=== PATIENT | female | born 1970 | race Hispanic/Latino ===

== ENCOUNTER 2018-01-24 21:51 | Emergency (ER) | payer BC ==
--- NOTE | 2018-01-24 23:55 | RAD ---
THREE VIEWS LEFT FOOT 01/24/18 HISTORY: Patient dropped picture frame on left middle toe. Bruising to left middle toe. Injury to left foot. FINDINGS: Lisfranc joint is normally aligned. There is no evidence of a fracture, dislocation, or other osseous abnormality involving the left foot. IMPRESSION: No acute osseous abnormality. POS: [facility]
== END 2018-01-24 23:31 | disposition home or self-care (01) ==
LOC: ERS 21:51
DX: S90.122A Contusion of left lesser toe(s) without damage to nail, initial encounter (principal); E78.5 Hyperlipidemia, unspecified; I10 Essential (primary) hypertension; Z79.899 Other long term (current) drug therapy; W20.8XXA Other cause of strike by thrown, projected or falling object, initial encounter

== ENCOUNTER 2018-07-27 13:48 | Observation (INO) | payer BC ==
[2018-07-27 15:01] LABS: #Eosinphils 0.3 thou/uL (0.0-0.7); #Monocytes 0.6 thou/uL (0.11-0.59); #Neutrophils 9.6 thou/uL (1.40-6.50); %Basophils 0.4 % (0.0-1.0); %Eosinophils 2.3 % (0.0-10.0); %Lymphocytes 16.1 % (21.0-51.0); %Monocytes 4.5 % (0.0-10.0); %Neutrophils 76.7 % (42.0-75.0); Hemoglobin 14.7 g/dL (12.0-16.0); Mean Corpuscular HGB CONC 32.9 g/dL (32.0-36.0); Mean Corpuscular Hemoglobin 28.5 pg (27.0-31.0); Mean Corpuscular Volume 86.6 fL (78.0-98.0); Mean Platelet Volume 7.6 fL (7.4-10.4); Platelet Count 337 thou/uL (130-400); RBC Distribution Width 13.1 % (11.5-14.5); Red Blood Cell (RBC) Count 5.16 mill/uL (4.20-5.40); White Blood Cell (WBC) Count 12.6 thou/uL (4.8-10.8)
[2018-07-27 15:27] LABS: ALT (SGPT) 12 U/L (8-55); AST (SGOT) 20 U/L (5-34); Albumin 3.8 g/dL (3.5-5.0); Alkaline Phosphatase 110 U/L (40-150); Anion Gap 11 mmol/L (10-20); BUN (Urea Nitrogen) 10 mg/dL (7.0-18.7); Bilirubin, Total 0.6 mg/dL (0.2-1.2); Calc. Creatinine Clearance 0 mL/min (70-130); Carbon Dioxide 27 mmol/L (22-29); Chloride 102 mmol/L (98-107); Estimated GFR-MDRD 86; Globulin 3.5 g/dL (2.4-3.5); Glucose 106 mg/dL (70-105); Potassium 3.4 mmol/L (3.5-5.1); Protein, Total 7.3 g/dL (6.0-8.3); Sodium 137 mmol/L (136-145)
[2018-07-27 15:29] LABS: CKMB 0.3 ng/mL (0-6.6); Troponin I Less than 0.010 ng/mL (< 0.028)
[2018-07-27 16:02] LABS: CK (CPK) 30 U/L (29-168); Lipase 23 U/L (8-78)
[2018-07-27] MEDS ORDERED: hydrALAZINE 20 MG/ML VIAL SLOW IVP PRN (16:48)
[2018-07-27] MEDS ORDERED: HumaLOG 300 UNITS/3 ML VIAL SC PRN ×2 (16:48)
[2018-07-27] MEDS ORDERED: Bisacodyl 5 MG TAB PO PRN ×2 (16:48)
[2018-07-27] MEDS ORDERED: Dextrose 5% in Water 1,000 ML IV PRN (16:48)
[2018-07-27] MEDS ORDERED: Dextrose 50% Abboject 50 ML SYRINGE SLOW IVP PRN (16:48)
[2018-07-27] MEDS ORDERED: Acetaminophen 325 MG TAB PO PRN (16:48)
[2018-07-27] MEDS ORDERED: Diabetic Tussin 200 MG/10 ML UDCUP PO PRN (16:48)
[2018-07-27] MEDS ORDERED: Ondansetron PF 4 MG/2 ML Vial IVP PRN ×2 (16:48)
[2018-07-27] MEDS ORDERED: Acetaminophen 500 MG TAB PO PRN (16:48)
[2018-07-27] MEDS ORDERED: Calcium Carbonate 500 MG ChewTAB PO PRN (16:48)
[2018-07-27] MEDS ORDERED: Nitroglycerin 0.4 MG TAB (25 Tab Bottle) SL PRN (16:48)
[2018-07-27] MEDS ORDERED: Senokot S 8.6-50 MG TAB PO PRN ×2 (16:48)
[2018-07-27] MEDS ORDERED: cloNIDine 0.1 MG TAB PO PRN (16:48)
[2018-07-27] MEDS ORDERED: Benzonatate 100 MG CAP PO PRN (16:48)
[2018-07-27 19:42] LABS: Troponin I Less than 0.010 ng/mL (< 0.028)
[2018-07-27 21:29] LABS: Troponin I Less than 0.010 ng/mL (< 0.028)
[2018-07-27] MEDS ORDERED: Potassium Chloride 20 MEQ TAB PO SCH (21:30)
--- NOTE | 2018-07-27 22:26 | HP ---
DATE OF ADMISSION: 07/27/2015 PRIMARY CARE PHYSICIAN: Reina Ruth M.D. CHIEF COMPLAINT: Chest pain and paresthesias. HISTORY OF PRESENT ILLNESS: Ms. Hernandez is a 47-year-old female with past medical history of hypert ension who presented to the emergency room with the above-mentioned complaint. History is mainly obt ained by the patient herself and electronic medical records have been reviewed. Case has been discus sed with admitting ER physician. Ms. Hernandez reports that she has been in her usual health, but while at work today, she felt some ch est pressure, 8/10 in intensity. This was associated with some shortness of breath, nausea, and palp itations. She also had feelings of "vibrations" around her mouth and her whole body. She denies any similar symptoms in the past. She denies any recent illnesses. She does have a strong family histo ry of coronary artery disease in multiple family members. She reports that her blood pressure is usu ally under good control and she is compliant with her medications. Upon presentation to the ER, her blood pressure was 138/81 with a pulse of 81. Her initial workup in cluded a 12-lead EKG, which did not have any evidence to suggest ACS. Chest x-ray was done which was unremarkable as well. Her troponin was checked and CK-MB and troponin were both normal. Rest of he r workup was unremarkable except for mild elevation of WBCs at 12.6 with 76% neutrophils and potassiu m of 3.4. She was given aspirin in the emergency room and is now being admitted to further work up a nd rule out acute coronary syndrome given her strong family history and other risk factors including obesity and hypertension. She also has a strong family history of diabetes mellitus in [facility]. Otherwise, she denies any orthopnea, PND, shortness of breath on exertion, recent weight loss or weig ht gain. Her chest pain at this time is almost relieved. She cannot recall any exacerbating or reli eving factors either. The patient reports that she had a hysterectomy done 2 years ago and feels that some of her symptoms like sweating that happened today, related to her menopause. PAST MEDICAL HISTORY: Hypertension. PAST SURGICAL HISTORY: 1. Cholecystectomy. 2. Hernia repair. 3. Hysterectomy. 4. Tubal ligation. PAST PSYCHIATRIC HISTORY: No anxiety, no depression. FAMILY HISTORY: Multiple family members with coronary artery disease and diabetes on both parents' s rita. Her dad had quadruple bypass in his 60s. She denies any drugs. SOCIAL HISTORY: She denies any drug, tobacco or alcohol abuse. She works in the [employer]. She is and lives with her . ALLERGIES: No known medication allergies. CURRENT MEDICATIONS: Lisinopril 20 mg daily, amlodipine 10 mg daily, bupropion 150 mg in the morning and, triamterene/hydrochlorothiazide 75/50 one tablet daily. REVIEW OF SYSTEMS: A 12-point review of systems is done and is negative except for those mentioned i n the history and physical LABORATORY DATA: Her CBC shows WBCs at 12.6 with 76% neutrophils, otherwise unremarkable. Serum cam jake shows potassium of 3.4, blood sugar 106, otherwise unremarkable. Lipase is normal. CPK rk l at 30, CK-MB 0.3, troponin less than 0.010 x2. A 12-lead EKG by my review shows no evidence to sug gest acute ST or T-wave changes, normal sinus rhythm is seen at 83 beats per minute. Poor R-wave pro gression is seen. Chest x-ray by my review has no evidence to suggest pleural effusion, edema or inf iltrate. PHYSICAL EXAMINATION: VITAL SIGNS: Upon presentation, blood pressure 138/81, pulse of 81, respirations 16, saturating 95% on room air, temperature 98.4. GENERAL: No acute distress, awake, alert, oriented x3. HEENT: Mucous membrane is moist and pink. No oropharyngeal exudate or erythema. Head is normocepha lic, atraumatic. Pupils equal, reactive to light and accommodation. Extraocular movement intact. NECK: Supple without any lymphadenopathy, JVD or bruit. CHEST: Clear to auscultation without any wheezing, rales or rhonchi. HEART: Rate and rhythm is regular without any murmur, rubs or gallops. ABDOMEN: Soft, nontender, nondistended with positive bowel sounds. EXTREMITIES: Free of any cyanosis, clubbing, or edema. NEUROLOGIC: Nonfocal. SKIN: Free of any rashes or bruises. Feels warm and dry to touch. PSYCHIATRIC: Normal affect. IMPRESSION AND PLAN: 1. Chest pain. The patient has had no cardiac workup done in the past and no risk stratification. Given her strong family history of coronary artery disease and personal history of hypertension and o besity, we will admit her under observation status to rule out acute coronary syndrome. Serial cardi ac enzymes will be trended. She is negative so far. We will continue aspirin and obtain a nuclear m edicine stress test in the morning. At this time, she is otherwise asymptomatic. We will also order a lipid panel in the morning. Sublingual nitroglycerin as needed will be started. We will restart her KARINA inhibitors. Continue her amlodipine, triamterene-hydrochlorothiazide for blood pressure cont rol as well. She will be on monitoring and evaluation advisor overnight. 2. Hypertension. Resume home medications as above. Currently controlled. 3. Obesity, BMI yet to be calculated. 4. Family history of coronary artery disease. 5. Family history of diabetes mellitus. The patient's blood sugar is under good control. We will c heck her hemoglobin A1c. 6. Deep venous thrombosis and gastrointestinal prophylaxis. DISPOSITION: Ms. Hernandez is currently being admitted to rule out ACS given multiple risk factors. Further management will depend upon her clinical course.
[2018-07-27] MEDS: Famotidine 20 MG TAB PO SCH (22:39)
[2018-07-28 03:32] LABS: Bilirubin Negative (Negative); Blood, Urine Negative (Negative); Clarity CLEAR (Clear); Glucose, Urine (Dipstick) Negative (Negative); Leukocyte Negative (Negative); Nitrite Negative (Negative); Protein, Urine (Dipstick) Negative (Neg-Trace); Specific Gravity, Urine 1.017 (1.002-1.036); Urobilinogen 0.2 mg/dL (0.2-1.0)
[2018-07-28 05:45] LABS: #Basophils 0.1 thou/uL (0.0-0.2); #Eosinphils 0.3 thou/uL (0.0-0.7); #Lymphocytes 2.5 thou/uL (1.20-3.40); #Monocytes 0.6 thou/uL (0.11-0.59); #Neutrophils 7.5 thou/uL (1.40-6.50); %Basophils 0.9 % (0.0-1.0); %Eosinophils 2.8 % (0.0-10.0); %Lymphocytes 22.5 % (21.0-51.0); %Monocytes 5.3 % (0.0-10.0); %Neutrophils 68.5 % (42.0-75.0); Mean Corpuscular HGB CONC 31.8 g/dL (32.0-36.0); Mean Corpuscular Hemoglobin 28.2 pg (27.0-31.0); Mean Corpuscular Volume 88.7 fL (78.0-98.0); Mean Platelet Volume 8.1 fL (7.4-10.4); Platelet Count 304 thou/uL (130-400); RBC Distribution Width 13.4 % (11.5-14.5); Red Blood Cell (RBC) Count 4.97 mill/uL (4.20-5.40)
[2018-07-28 06:07] LABS: Hemoglobin A1c 5.3 % (4.0-6.0)
[2018-07-28 06:15] LABS: Anion Gap 11 mmol/L (10-20); BUN (Urea Nitrogen) 12 mg/dL (7.0-18.7); Calc. Creatinine Clearance 154 mL/min (70-130); Calcium 8.6 mg/dL (7.8-10.44); Carbon Dioxide 26 mmol/L (22-29); Cardiac Risk 3.8 (Less than 4.5); Chloride 105 mmol/L (98-107); Cholesterol 180 mg/dl (< 200 Desired); Estimated GFR-MDRD Greater than 90; Glucose 94 mg/dL (70-105); HDL Cholesterol 47 mg/dL (>60 Neg Risk); LDL Cholesterol, Calculated 108 mg/dL; Potassium 3.7 mmol/L (3.5-5.1); Sodium 138 mmol/L (136-145); Triglycerides 127 mg/dL (Less than 150)
[2018-07-28] MEDS ORDERED: Triamterene/Hydrochlorothiazid 75 mg/50 mg Tablet PO SCH (09:00)
[2018-07-28] MEDS ORDERED: Aspirin 325 mg Enteric Coated Tablet PO SCH (09:00)
[2018-07-28] MEDS ORDERED: Lisinopril 20 MG TAB PO SCH (09:00)
[2018-07-28] MEDS ORDERED: Enoxaparin Sodium 40 MG/0.4 ML SYRINGE SC SCH (09:00)
[2018-07-28] MEDS ORDERED: Amlodipine 10 MG TAB PO SCH (09:00)
[2018-07-28] MEDS ORDERED: Bupropion 150 MG XL TAB PO SCH (09:00)
[2018-07-28] MEDS ORDERED: Regadenoson 0.4 MG/5 ML SYRINGE ONE (10:38)
[2018-07-28] MEDS: Famotidine 20 MG TAB PO SCH (11:20)
--- NOTE | 2018-07-28 14:48 | NM ---
STRESS ONLY MYOCARDIAL PERFUSION STUDY: Technique: Patient was given 31 mCi Technetium 99M Sestamibi IV. A stress only exam was performed. Patient was s tressed according to [facility] protocol. Indications: Chest pain. FINDINGS: Normal activity is seen throughout the left ventricle on the stress only study. Wall motion appears n ormal. IMPRESSION: Negative stress only myocardial perfusion exam. POS: [facility]
[2018-07-28] MEDS ORDERED: Bupivacaine 0.75% W/DEXTROSE 8.25% 2 ML AMP ONE (15:13)
--- NOTE | 2018-07-28 15:44 | PDOC.EVN ---
Event Note - Event Note Event Note: I have interviewed, examined and discussed patient with Irene CASTANEDA regarding evaluation for chest pain. Reviewed all labs, x-rays and stress tests with recommendations for outpt follow up, diet, exercise and BP control. Please see dictated H&P for details. Discharge home today.
--- NOTE | 2018-07-28 15:52 | RAD ---
CHEST 1 VIEW: Date: 07/27/18 HISTORY: Chest pain. COMPARISON: None. FINDINGS: Lungs are clear. No pneumothorax or effusion. Cardiac silhouette and mediastinal contours are within normal limits. IMPRESSION: No acute intrathoracic abnormality. POS: [facility]
[2018-07-28 16:19] VITALS: BP 133/73; TEMP 98.1
--- NOTE | 2018-07-29 01:17 | DIS ---
DATE OF ADMISSION: 07/27/2018 DATE OF DISCHARGE: 07/28/2018 PRIMARY CARE PHYSICIAN: Reina Ruth MD CODE STATUS: FULL. CONSULTANTS: None. PROCEDURES: She had a nuclear stress test, which was negative. A chest x-ray done in the ER, which showed no acute findings. DISCHARGE DIAGNOSES: 1. Chest pain, noncardiac. 2. Hypertension, which is controlled with home medications. REVIEW OF SYSTEMS: On exam this morning by me, she denied any chest pain, shortness of breath, focal weakness, nausea, vomiting, diarrhea, or any general complaints. Reports that the chest pain resolved yesterday while in the ER and has not returned. PHYSICAL EXAMINATION: VITAL SIGNS: Temperature 98.1, pulse 63, respirations are 20, O2 sats 93 on room air, blood pressure 133/78. GENERAL: She is in no acute distress. She is awake, alert, oriented x3. HEENT: Mucous membranes are moist and pink. Head is normocephalic, atraumatic. Pupils are equal, reactive to light. Extraocular movements are intact. NECK: Supple. No JVD or bruit. CHEST: Clear to auscultation without any wheezing, rales, or rhonchi. HEART: Regular rate and rhythm are regular, without any murmurs, rubs, or gallops. ABDOMEN: Soft, nontender, nondistended with positive bowel signs. EXTREMITIES: Moves all extremities. Sensation, pulses, ROM equal to BLE, BUE. NEUROLOGIC: Nonfocal abnormalities noted SKIN: Warm, dry. No rashes or bruises are noted. PSYCHIATRIC: Normal affect. HOSPITAL COURSE: This is a 47-year-old pleasant female with a past medical history of hypertension, which is controlled with multiple medications. The patient reports that she had some chest pressure at work yesterday, reports 8/ 10 pain with feelings of a vibration sensation all over her body. Reports similar shorter episodes over the last 2 weeks. When she presented to the ER yesterday, EKG was unremarkable. Chest x-ray was negative for any acute process. An initial troponin was also negative. The patient stated that she had a significant family history of cardiac disease, diabetes, and hypertension. A decision was made to admit her for chest pain rule out and further evaluation. Serial troponins remained negative. Stress test was also negative. Vital signs have remained stable. Patient denies any chest pain, shortness of breath, dizziness during hospital stay, case discussed with Dr. Hagen and agreed with plan to be discharged home with followup with her PCP within 1 week. ALLERGIES: No known allergies. MEDICATIONS: She will continue her home medications. 1. Amlodipine 10 mg p.o. daily. 2. Wellbutrin 150 mg p.o. q.a.m. 3. Lisinopril 20 mg p.o. daily. 4. Triamterene/hydrochlorothiazide 1 tablet p.o. daily. 5. Aspirin 325 mg p.o. daily. DISCHARGE INSTRUCTIONS: The patient is in stable condition and will be discharged home. She will need to follow up with her PCP, Dr. Ruth within 1 week. SASHA
--- NOTE | 2018-07-31 13:10 | STRESS ---
Acquisition Time: 2018-07-28 09:57:11 Total Exercise Time: 00:01:00 Test Indications: CHEST PAIN Medications: Protocol: LEXISCAN Max HR: 103 BPM 58% of Pred: 175 BPM Max BP: 124/074 mmHG Max Work Load: 1.0 METS RESTING ECG: NORMAL SINUS RHYTHM AT 64 BPM SYMPTOMS: PALPITATIONS NORMAL BP RESPONSE ECTOPY: NONE ECG STRESS: NO SIGNIFICANT CHANGES INTERPRETATION: AWAIT NUCLEAR IMAGES FOR DEFINITIVE DIAGNOSIS Confirmed by JS HERNANDEZ ([id number]), greeting card editor ZULLY VALENTE ([id number]) on 07/31/2018 1:09:59 PM Referred By: MD Bryce BURNS Confirmed By:JS HERNANDEZ
--- NOTE | 2018-08-01 11:21 | EKG ---
Test Reason : Blood Pressure : / mmHG Vent. Rate : 083 BPM Atrial Rate : 083 BPM P-R Int : 134 ms QRS Dur : 082 ms QT Int : 382 ms P-R-T Axes : 020 -20 015 degrees QTc Int : 448 ms Normal sinus rhythm Nonspecific ST and T wave abnormality Abnormal ECG Confirmed by PATRICE HENAO, JOSE ([id number]), electronic news gathering editor VERN CISNEROS ([id number]) on 08/01/2018 11:20:54 AM Referred By: Confirmed By:JOSE IBRAHIM MD
== END 2018-07-28 16:50 | disposition home or self-care (01) ==
LOC: ERS 13:48 → ERHOLD 17:03 → 2SW 20:29
PROVIDERS: ADMIT Internal Medicine; ATTEND Internal Medicine
DX: R07.89 Other chest pain (principal); I10 Essential (primary) hypertension; E66.9 Obesity, unspecified; Z79.899 Other long term (current) drug therapy; Z82.49 Family history of ischemic heart disease and other diseases of the circulatory system
CPT/HCPCS: 36415; 36416; 71045; 78452; 80048; 80053; 80061; 81003; 82553; 83036; 83690; 84484; 85025; 90471; 90686; 93005; 93017; 96360; 96361; 96372; A9500; G0008; G0378; J1650; J2785; J3490

== ENCOUNTER 2019-03-02 08:47 | Emergency (ER) | payer BC ==
[2019-03-02] MEDS ORDERED: ISOVUE-370 76%-LOCM 1 ML ONE (09:03)
[2019-03-02 09:04] LABS: #Eosinphils 0.1 thou/uL (0.0-0.7); #Lymphocytes 1.8 thou/uL (1.20-3.40); #Monocytes 0.5 thou/uL (0.11-0.59); %Basophils 0.2 % (0.0-1.0); %Eosinophils 0.9 % (0.0-10.0); %Lymphocytes 17.4 % (21.0-51.0); %Monocytes 4.7 % (0.0-10.0); %Neutrophils 76.9 % (42.0-75.0); Mean Corpuscular HGB CONC 33.4 g/dL (32.0-36.0); Mean Corpuscular Hemoglobin 29.1 pg (27.0-31.0); Mean Corpuscular Volume 87.1 fL (78.0-98.0); Mean Platelet Volume 7.7 fL (7.4-10.4); Platelet Count 310 thou/uL (130-400); RBC Distribution Width 13.7 % (11.5-14.5); Red Blood Cell (RBC) Count 5.15 mill/uL (4.20-5.40); White Blood Cell (WBC) Count 10.4 thou/uL (4.8-10.8)
[2019-03-02] MEDS ORDERED: Ondansetron PF 4 MG/2 ML Vial ONE (09:04)
[2019-03-02] MEDS ORDERED: Morphine 4 MG/ML VIAL ONE (09:04)
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
[2019-03-02 09:29] LABS: ALT (SGPT) 13 U/L (8-55); AST (SGOT) 16 U/L (5-34); Albumin 3.7 g/dL (3.5-5.0); Alcohol Less than 10 mg/dL (Less than 10); Alkaline Phosphatase 105 U/L (40-150); Anion Gap 11 mmol/L (10-20); BUN (Urea Nitrogen) 11 mg/dL (7.0-18.7); Bilirubin, Total 0.5 mg/dL (0.2-1.2); Calc. Creatinine Clearance 0 mL/min (70-130); Carbon Dioxide 26 mmol/L (22-29); Chloride 105 mmol/L (98-107); Estimated GFR-MDRD Greater than 90; Globulin 3.5 g/dL (2.4-3.5); Glucose 102 mg/dL (70-105); Potassium 3.3 mmol/L (3.5-5.1); Protein, Total 7.2 g/dL (6.0-8.3); Sodium 139 mmol/L (136-145)
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
[2019-03-02] MEDS ORDERED: Ketorolac Tromethamine 60 MG/2 ML VIAL ONE (11:35)
== END 2019-03-02 11:30 | disposition home or self-care (01) ==
LOC: ERS 08:47
DX: S60.512A Abrasion of left hand, initial encounter (principal); S60.511A Abrasion of right hand, initial encounter; R10.32 Left lower quadrant pain; H92.02 Otalgia, left ear; R51 Headache; E78.5 Hyperlipidemia, unspecified; I10 Essential (primary) hypertension; F32.9 Major depressive disorder, single episode, unspecified; Z79.899 Other long term (current) drug therapy; V49.60XA Unspecified car occupant injured in collision with unspecified motor vehicles in traffic accident, initial encounter
CPT/HCPCS: 70450; 71260; 72125; 74177; 80053; 80307; 85025; 96360; 96361; 96372; 96374; 96375; G0390; J1885; J2270; J2405; Q9966

== ENCOUNTER 2020-06-20 07:24 | Outpatient (CLI) | payer BC ==
--- NOTE | 2020-06-20 09:01 | MRI ---
MRI lumbar spine noncontrast: HISTORY: Spinal stenosis, lumbar spine COMPARISON: None FINDINGS: Appropriate T1 marrow signal intensity of the lumbar vertebra. Lumbar spine vertebral body height is maintained. No fracture. No significant STIR hyperintensity to suggest ligamentous injury or vertebral body edema. Appropriate signal intensity of the visualized paraspinal muscles. 0.8 cm T2 hyperintensity in the ri ght renal cortex is favored to be a cyst. Conus medullaris terminates at the superior endplate of L2. T12-L1:Adequate disc hydration. No posterior disc abnormality. No significant central canal stenosis or significant neural foraminal narrowing. L1-L2:Adequate disc hydration. No posterior disc abnormality. No significant central canal stenosis o r significant neural foraminal narrowing. L2-L3:Adequate disc hydration. No posterior disc abnormality. No significant central canal stenosis o r significant neural foraminal narrowing. L3-L4:Adequate disc hydration. No posterior disc abnormality. No significant central canal stenosis o r significant neural foraminal narrowing. L4-L5:Adequate disc hydration. Broad-based disc bulge minimally flattens the thecal sac. There is mil d ligamentum flavum thickening and moderate facet hypertrophy. Mild central canal stenosis. Minimal bilateral neural foraminal narrowing. 0.2 cm of anterolisthesis of L4 upon L5 likely due to posterior element hypertrophy. L5-S1:Disc desiccation without significant loss of disc space height. Broad-based disc bulge minimall y contacts the thecal sac and encroaches upon bilateral subarticular zones. Disc material abuts but does not obscure either traversing S1 nerve root. Mild to moderate bilateral facet hypertrophy. Paten t bilateral neural foramina. There is a T2 and STIR hyperintense focus involving the right foraminal/extraforaminal component of the disc, compatible with annular fissure. Annular fissure appr oximates extraforaminal right L5 nerve root. IMPRESSION: 1. No fracture. 2. Grade 1 anterolisthesis of L4 upon L5 due to L4-L5 facet hypertrophy. No significant central canal stenosis or significant neural foraminal narrowing throughout the lumbar spine. 3. Annular fissure involving the foraminal/extraforaminal right L5-S1 disc. Annular fissure approxima socorro the extraforaminal right L5 nerve root. Transcribed Date/Time: 06/20/2020 9:17 AM
== END 2020-06-20 07:25 | disposition home or self-care (01) ==
LOC: BICMRI 07:24
PROVIDERS: ATTEND Orthopaedic Surgery
DX: M48.061 Spinal stenosis, lumbar region without neurogenic claudication (principal); M43.16 Spondylolisthesis, lumbar region; M51.87 Other intervertebral disc disorders, lumbosacral region
CPT/HCPCS: 72148

== ENCOUNTER 2021-06-17 20:50 | Emergency (ER) | payer BC ==
[2021-06-17 21:37] LABS: #Basophils 0.1 thou/uL (0.0-0.2); #Eosinphils 0.1 thou/uL (0.0-0.7); #Lymphocytes 2.3 thou/uL (1.20-3.40); #Monocytes 0.5 thou/uL (0.11-0.59); #Neutrophils 9.8 thou/uL (1.40-6.50); %Basophils 0.8 % (0.0-1.0); %Eosinophils 0.8 % (0.0-10.0); %Lymphocytes 17.9 % (21.0-51.0); %Monocytes 3.5 % (0.0-10.0); Hemoglobin 15.2 g/dL (12.0-16.0); Mean Corpuscular HGB CONC 34.7 g/dL (32.0-36.0); Mean Corpuscular Volume 86.5 fL (78.0-98.0); Mean Platelet Volume 7.7 fL (7.4-10.4); Platelet Count 276 thou/uL (130-400); Red Blood Cell (RBC) Count 5.08 mill/uL (4.20-5.40); White Blood Cell (WBC) Count 12.7 thou/uL (4.8-10.8)
[2021-06-17 21:58] LABS: ALT (SGPT) 11 U/L (8-55); AST (SGOT) 22 U/L (5-34); Albumin 3.6 g/dL (3.5-5.0); Alkaline Phosphatase 125 U/L (40-110); Anion Gap 12 mmol/L (10-20); BUN (Urea Nitrogen) 14 mg/dL (7.0-18.7); Bilirubin, Total 0.3 mg/dL (0.2-1.2); Calc. Creatinine Clearance 0 mL/min (70-130); Calcium 9.1 mg/dL (7.8-10.44); Carbon Dioxide 28 mmol/L (22-29); Chloride 100 mmol/L (98-107); Globulin 3.3 g/dL (2.4-3.5); Glucose 139 mg/dL (70-105); Potassium 3.4 mmol/L (3.5-5.1); Protein, Total 6.9 g/dL (6.0-8.3); Sodium 137 mmol/L (136-145)
== END 2021-06-17 23:24 | disposition home or self-care (01) ==
LOC: ERS 20:50
DX: R07.89 Other chest pain (principal); E78.5 Hyperlipidemia, unspecified; I10 Essential (primary) hypertension
CPT/HCPCS: 36415; 71045; 80053; 84484; 85025; 85379; 93005; 94760

== ENCOUNTER 2021-07-26 12:43 | Emergency (ER) | payer BC ==
[2021-07-26] MEDS ORDERED: Ibuprofen 200 MG TAB ONE (13:39)
[2021-07-26] MEDS ORDERED: Bacitracin 1 PK ONE (14:52)
== END 2021-07-26 15:17 | disposition home or self-care (01) ==
LOC: ERS 12:43
DX: T23.202A Burn of second degree of left hand, unspecified site, initial encounter (principal); E78.5 Hyperlipidemia, unspecified; E78.1 Pure hyperglyceridemia; I10 Essential (primary) hypertension; Z79.899 Other long term (current) drug therapy; X10.2XXA Contact with fats and cooking oils, initial encounter
CPT/HCPCS: 16020

== ENCOUNTER 2024-08-31 11:37 | Emergency (ER) | payer BC | END 2024-08-31 13:52 | disposition home or self-care (01) | LOC: ERS 11:37 | DX: J06.9 Acute upper respiratory infection, unspecified (principal); I10 Essential (primary) hypertension; Z55.6 Problems related to health literacy | CPT/HCPCS: 71045; 87428 ==